=== PATIENT | female | born 1965 | race Caucasian/White ===

== ENCOUNTER 2016-11-01 22:27 | Emergency (ER) | payer OTHER ==
[~2016-11-01] VITALS: Ht 172.7 cm; Wt 85.0 kg
[~2016-11-01 22:27] MED LIST: ADVI200T PO; ATEN-100 PO; CYMB60CA PO; DILA2TAB4 PO; DILA4TAB10 PO; IBUP600 PO; LISI20 PO; LORTA5 PO; MACR100C PO; MIRA0.5T PO; PROM25TA5 PO; TAMS0.4C67 PO; ZOFR4TAB3 SL
[2016-11-01 22:33] VITALS: BP 132/79; PULSE 119; RESP 18; TEMP 100.8; O2SAT 96
--- NOTE | 2016-11-02 03:08 | PD ---
HPI Chief Complaint: Fever Time Seen by Provider: 02:53 Travel History International Travel<30 days: No Contact w/Intl Traveler<30days: No Traveled to known affect area: No History of Present Illness HPI The patient is a 51-year-old female with a history of irritable bowel syndrome who complains of fever up to 102.4 yesterday along with diffuse abdominal pain, nausea, vomiting and diarrhea. She denies any blood in the stool or vomitus. She does have a history of kidney stones. She denies any recent antibiotics, well water ingestion, recent foreign travel or exposure to anyone with similar symptoms. She does have a bifrontal, retro-orbital headache of gradual onset. She does feel weak and dehydrated. PFSH Past Medical History Anxiety: Yes (hx of panic attacks) Heart Rhythm Problems: Yes (RAPID HEART RATE) Cardiac Catheterization: No Cardiovascular Problems: No High Cholesterol: No Chest Pain: Yes Congestive Heart Failure: No Diabetes: Yes Diminished Hearing: No Hypertension: Yes Menopausal: Yes Ovarian Cysts: Yes Past Surgical History Section: Yes Cholecystectomy: Yes Coronary Artery Bypass Graft: No Hysterectomy: Yes Other Surgery: Yes (ANAL FISURE) Social History Alcohol Use: Yes (RARELY) Tobacco Use: No Substance Use: No Allergies-Medications (Allergen,Severity, Reaction): Coded Allergies: No Known Allergies (Unverified , 11/02/16) Reported Meds & Prescriptions Reported Meds & Active Scripts Active Reported Pramipexole (Pramipexole Dihydrochloride) 0.5 Mg Tab 0.5 Mg PO TID Metformin (Metformin HCl) 500 Mg Tab 500 Mg PO TIDPC With meals Lisinopril 20 Mg Tab 20 Mg PO DAILY Wellbutrin SR 12 HR (Bupropion HCl) 100 Mg Tab 100 Mg PO Q12HR Duloxetine DR (Duloxetine HCl) 60 Mg Capdr 60 Mg PO DAILY Atenolol 25 Mg Tab 25 Mg PO Q6HR Review of Systems Except as stated in HPI: all other systems reviewed are Neg Physical Exam Narrative GENERAL: The patient is alert, oriented 3, moderately dehydrated appearing in moderate apparent distress with her abdominal discomfort. Her heart rate is 119 and her temperature is 100.8 but the rest the vital signs are normal. SKIN: Warm and dry. HEAD: Atraumatic. Normocephalic. EYES: Pupils equal and round. No scleral icterus. No injection or drainage. ENT: No nasal bleeding or discharge. Mucous membranes pink but dry. The tongue and particularly appears dry. NECK: Trachea midline. No JVD. CARDIOVASCULAR: Sinus tachycardia rhythm. No murmur appreciated. RESPIRATORY: No accessory muscle use. Clear to auscultation. Breath sounds equal bilaterally. GASTROINTESTINAL: Abdomen soft, with tenderness to direct palpation diffusely over the lower quadrants as well as upper quadrants, nondistended. Hepatic and splenic margins not palpable. No guarding or rebound is present. There are scars present from her previous cholecystectomy which was done by laparoscopic technique. MUSCULOSKELETAL: No obvious deformities. No clubbing. No cyanosis. No edema. NEUROLOGICAL: Awake and alert. No obvious cranial nerve deficits. Motor grossly within normal limits. Normal speech. PSYCHIATRIC: Appropriate mood and affect; insight and judgment normal. Data Data Last Documented VS Vital Signs Date Time Temp Pulse Resp B/P Pulse Ox O2 Delivery O2 Flow Rate FiO2 11/02/16 03:55 98 18 110/77 94 Room Air 11/02/16 03:23 100.8 Orders Complete Blood Count With Diff (11/02/16 03:03) Comprehensive Metabolic Panel (11/02/16 03:03) Lipase (11/02/16 03:03) Urinalysis - C+S If Indicated (11/02/16 03:03) Iv Access Insert/Monitor (11/02/16 03:03) Ecg Monitoring (11/02/16 03:03) Oximetry (11/02/16 03:03) Morphine Inj (Morphine Inj) (11/02/16 03:15) Sodium Chloride 0.9% Flush (Ns Flush) (11/02/16 03:15) Ondansetron Inj (Zofran Inj) (11/02/16 03:15) Sodium Chlor 0.9% 1000 Ml Inj (Ns 1000 M (11/02/16 03:15) Ondansetron Inj (Zofran Inj) (11/02/16 04:15) Urine Culture (11/02/16 03:30) Ondansetron Inj (Zofran Inj) (11/02/16 05:15) Acetaminophen (Tylenol) (11/02/16 05:15) Labs Laboratory Tests Test 11/02/16 03:30 White Blood Count 10.8 TH/MM3 Red Blood Count 4.93 MIL/MM3 Hemoglobin 13.8 GM/DL Hematocrit 42.4 % Mean Corpuscular Volume 86.1 FL Mean Corpuscular Hemoglobin 28.1 PG Mean Corpuscular Hemoglobin 32.6 % Concent Red Cell Distribution Width 13.1 % Platelet Count 193 TH/MM3 Mean Platelet Volume 7.9 FL Neutrophils (%) (Auto) 89.5 % Lymphocytes (%) (Auto) 5.6 % Monocytes (%) (Auto) 4.7 % Eosinophils (%) (Auto) 0.1 % Basophils (%) (Auto) 0.1 % Neutrophils # (Auto) 9.7 TH/MM3 Lymphocytes # (Auto) 0.6 TH/MM3 Monocytes # (Auto) 0.5 TH/MM3 Eosinophils # (Auto) 0.0 TH/MM3 Basophils # (Auto) 0.0 TH/MM3 CBC Comment DIFF FINAL Differential Comment Urine Collection Type VOIDED Urine Color YELLOW Urine Turbidity SLIGHT Urine pH 5.5 Urine Specific [place] 1.026 Urine Protein 100 mg/dL Urine Glucose (UA) NEG mg/dL Urine Ketones NEG mg/dL Urine Occult Blood LARGE Urine Nitrite NEG Urine Bilirubin NEG Urine Leukocyte Esterase MOD Urine RBC 20-24 /hpf Urine WBC 25-49 /hpf Urine WBC Clumps RARE Urine Squamous Epithelial >8 /hpf Cells Urine Uric Acid Crystals MOD /hpf Urine Bacteria MANY /hpf Urine Mucus MOD /lpf Microscopic Urinalysis Comment CULTURE INDICATED Sodium Level 134 MEQ/L Potassium Level 3.5 MEQ/L Chloride Level 99 MEQ/L Carbon Dioxide Level 22.2 MEQ/L Anion Gap 13 MEQ/L Blood Urea Nitrogen 16 MG/DL Creatinine 1.20 MG/DL Estimat Glomerular Filtration 48 ML/MIN Rate Random Glucose 180 MG/DL Calcium Level 8.8 MG/DL Total Bilirubin 0.7 MG/DL Aspartate Amino Transf 23 U/L (AST/SGOT) Alanine Aminotransferase 37 U/L (ALT/SGPT) Alkaline Phosphatase 100 U/L Total Protein 8.1 GM/DL Albumin 3.6 GM/DL Lipase 119 U/L [facility] Medical Decision Making Medical Screen Exam Complete: Yes Emergency Medical Condition: Yes Medical Record Reviewed: Yes Interpretation(s) The complete metabolic profile shows a sodium of 134, creatinine 1.2, glucose 180 but is otherwise normal. The lipase is normal. The CBC shows 90% neutrophils but is otherwise unremarkable. The urine shows 100 protein, large blood, moderate leukocyte esterase with 25-49 white cells and rare white cell clumping's and 20-24 red cells and many bacteria and moderate uric acid crystals and culture is indicated. Differential Diagnosis Viral gastroenteritis, pyelonephritis, cystitis, dehydration, electrolyte disorder, acute appendicitis, gastritis Narrative Course The patient appears to have a viral gastroneuritis along with a urinary tract infection which is probably pyelonephritis. Plan: The patient will be given macrobid 100 mg twice daily for 10 days along with Zofran 8 mg and increase clear liquids intake. She will need to follow-up with her primary care physician later this week. Diagnosis Primary Impression: Viral gastroenteritis Additional Impressions: Pyelonephritis Moderate dehydration Additional Instructions: As we discussed, limit her diet to clear liquids such as Gatorade. Take the Zofran regularly for the first 2 or 3 days, it is one tablet every 8 hours. Beyond that you can probably use it as an as needed drugs. The Zofran is for nausea. The Macrobid is the antibiotic for your urine infection and this is one twice daily for 10 days. Med/Other Pt SpecificInfo: Prescription(s) given Scripts Nitrofurantoin Monohydrate Macrocrystals (Macrobid)100 Mg Qut170 Mg PO BID 10 Days Ref 0 Prov:Rashid Lang MD 11/02/16 Disposition: 01 DISCHARGE HOME Condition: Stable Rashid Lang MD Nov 02, 2016 03:08
[2016-11-02] MEDS ORDERED: ONDANSETRON HCL 4 MG/2 ML VIAL IV ONE ×3 (03:15→05:15)
[2016-11-02] MEDS ORDERED: SODIUM CHLORIDE 0.9% FLUSH 5 ML FLUSH IVF PRN (03:15)
[2016-11-02] MEDS ORDERED: MORPHINE SULFATE 4 MG/ML INJ IV PUSH ONE (03:15)
[2016-11-02 03:23] VITALS: BP 108/77; PULSE 96; RESP 18; TEMP 100.8; O2SAT 97
[2016-11-02] MEDS ORDERED: BUPR100CR PO (03:23)
[2016-11-02] MEDS ORDERED: LISI-515 PO (03:23)
[2016-11-02] MEDS ORDERED: ATEN25TA PO (03:23)
[2016-11-02] MEDS ORDERED: PRAM0.5T PO (03:23)
[2016-11-02] MEDS ORDERED: METF500T PO (03:23)
[2016-11-02] MEDS ORDERED: DULO1CAP3 PO (03:23)
[2016-11-02 03:25] VITALS: RESP 18; O2SAT 97
[2016-11-02] MEDS: SODIUM CHLOR 0.9% 1000 ML INJ 1,000 ML IV SCH ×2 (03:53→04:44)
[2016-11-02 03:55] VITALS: BP 110/77; PULSE 98; RESP 18; O2SAT 94
[2016-11-02 03:55] LABS: BLOOD, URINE LARGE (NEG); GLUCOSE,URINE NEG (NEG); KETONE, URINE NEG (NEG); NITRITE,URINE NEG (NEG); PH, URINE 5.5 (5.0-8.5)
[2016-11-02 03:58] LABS: AUTOMATED NEUTROPHIL # 9.7 TH/MM3 (1.8-7.7); BASOPHIL % 0.1 % (0.0-2.0); EOSINOPHIL % 0.1 % (0.0-4.0); HEMATOCRIT 42.4 % (35.0-46.0); LYMPH % 5.6 % (9.0-44.0); LYMPHOCYTE # 0.6 TH/MM3 (1.0-4.8); MEAN CELL VOLUME 86.1 FL (80.0-100.0); MEAN CORPUSCULAR HEMOGLOBIN 28.1 PG (27.0-34.0); MEAN CORPUSCULAR HGB CONC 32.6 % (32.0-36.0); MONO % 4.7 % (0.0-8.0); NEUT % 89.5 % (16.0-70.0); PLATELET COUNT 193 TH/MM3 (150-450); RED BLOOD COUNT 4.93 MIL/MM3 (4.00-5.30); RED CELL DISTRIBUTION WIDTH 13.1 % (11.6-17.2); WHITE BLOOD COUNT 10.8 TH/MM3 (4.0-11.0)
[2016-11-02 04:03] LABS: CHLORIDE 99 MEQ/L (98-107); POTASSIUM 3.5 MEQ/L (3.5-5.1); SODIUM (NA) 134 MEQ/L (136-145)
[2016-11-02 04:07] LABS: ANION GAP 13 MEQ/L (5-15); BICARBONATE 22.2 MEQ/L (21.0-32.0); BLOOD UREA NITROGEN 16 MG/DL (7-18)
[2016-11-02 04:08] LABS: HEMO FLAGS DIFF FINAL
[2016-11-02 04:10] LABS: ALT (GPT) 37 U/L (10-53); AST (GOT) 23 U/L (15-37); GLOMERULAR FILTRATION RATE 48 ML/MIN (>89)
[2016-11-02 04:11] LABS: TOTAL BILIRUBIN ADULT 0.7 MG/DL (0.2-1.0)
[2016-11-02 04:13] LABS: ALKALINE PHOSPHATASE 100 U/L (45-117)
[2016-11-02 04:58] LABS: METHOD OF COLLECTION VOIDED
[2016-11-02 04:59] LABS: URINE COLOR YELLOW (YELLW/STRAW)
[2016-11-02 05:00] LABS: MUCUS URINE MOD /lpf (OCC)
[2016-11-02 05:03] LABS: SQUAMOUS EPITHELIAL CELL URINE >8 /hpf (0-5)
[2016-11-02 05:07] LABS: BACTERIA, URINE MANY /hpf
[2016-11-02 05:08] LABS: COMMENT (UR) CULTURE INDICATED; CULTURE IF INDICATED CULTURE INDICATED
[2016-11-02 05:11] LABS: URIC ACID CRYSTALS, URINE MOD /hpf
[2016-11-02] MEDS ORDERED: ACETAMINOPHEN 500 MG CPLT PO ONE (05:15)
[2016-11-02 05:32] VITALS: BP 116/74; PULSE 96; RESP 18; O2SAT 95
[2016-11-02] MEDS ORDERED: MACR100C2 PO ×2 (05:33→05:34)
[2016-11-02] MEDS ORDERED: ZOFR8TAB PO (05:34)
[2016-11-02] MEDS ORDERED: NITROFURANTOIN MONOHYD MACROCR 100 MG CAP PO ONE (05:45)
[2016-11-02 06:09] VITALS: BP 116/72
== END 2016-11-02 06:20 | disposition home or self-care (01) ==
LOC: PHED 22:27
DX: A08.4 Viral intestinal infection, unspecified (principal); N12 Tubulo-interstitial nephritis, not specified as acute or chronic; E86.0 Dehydration; I10 Essential (primary) hypertension
CPT/HCPCS: 80053; 81001; 83690; 85025; 87086; 96361; 96374; 96375; 96376; 99284; J2270; J2405; J7030